=== PATIENT | male | born 1980 | race Caucasian/White ===

== ENCOUNTER 2019-08-11 16:58 | Emergency (ER) | payer MEDICARE, MEDICAID, SELFPAY ==
[2019-08-11 18:03] VITALS: BP 133/86; PULSE 90; RESP 16; TEMP 37; O2SAT 100
--- NOTE | 2019-08-11 18:35 | ED.ANXIETY ---
HPI - Anxiety General Chief Complaint: Anxiety <Mikael Chun PA-C - Last Filed: 08/11/19 18:44> Stated Complaint: Anxiety <Mikael Chun PA-C - Last Filed: 08/11/19 18:44> Time Seen by Provider: 08/11/19 18:10 <KRISTAL Young Last Filed: 08/11/19 18:44> Source: patient <Mikael Chun PA-C - Last Filed: 08/11/19 18:44> Mode of arrival: ambulatory <Mikael Chun PA-C - Last Filed: 08/11/19 18:44> Limitations: no limitations <Mikael Chun PA-C - Last Filed: 08/11/19 18:44> History of Present Illness HPI narrative: Patient is a 38-year-old male who presents per EMS to emergency department with increasing anxiety after he reportedly received the of over the phone today patient with extreme anxiety patient denies knowing anyone that would want to hurt him and denies any homicidal or suicidal ideation patient on arrival notes that he cannot find his Ativan he takes 3 mg 3 times a day and is followed by psychiatry patient was recent in the emergency department and also could not find his Ativan at that time. Patient on arrival is in the room in no distress <Mikael Chun PA-C - Last Filed: 08/11/19 18:44> Related Data Allergies/Adverse Reactions: Allergies Allergy/AdvReac Type Severity Reaction Status Date / Time acetaminophen Allergy Intermediate vomiting Verified 12/06/18 08:03 aspirin Allergy Unknown SWELLING Verified 12/06/18 08:03 <Mikael Chun PA-C - Last Filed: 08/11/19 18:44> Review of Systems Review of Systems: All systems reviewed & are unremarkable except as noted in HPI and below <Mikael Chun PA-C - Last Filed: 08/11/19 18:44> PMFSH Social History Social History: Social History Smoking status: Never smoker Second hand tobacco smoke exposure: No Alcohol intake: never <KRISTAL Young Last Filed: 08/11/19 18:44> Exam Narrative: Exam Narrative: GENERAL: Well-appearing, well-nourished, and in no acute distress. HEAD: Normocephalic, atraumatic. EYES: PERRLA and EOMI. ENT: Nares clear, no rhinorrhea or epistaxis. Mucous membranes moist. Oropharynx without tonsillar hypertrophy exudate or other lesions. CHEST: Clear to auscultation. No respiratory distress. No wheezes rales or rhonchi HEART: Regular rate and rhythm. No murmur heard. Normal peripheral pulses. EXTREMITIES: Normal range of motion. No edema. SKIN: Warm, dry, no rash. NEURO: No focal deficits. Alert and oriented x3. Cranial nerves II through XII grossly intact. PSYCH: Normal mood and affect. <Mikael Chun PA-C - Last Filed: 08/11/19 18:44> Course Course Emergency Course: Patient in the room in no distress advised to follow with his psychotherapist and felt appropriate for outpatient reevaluation <Mikael Chun PA-C - Last Filed: 08/11/19 18:44> Vital Signs Vital signs: Vital Signs Temperature 37.0 C 08/11/19 18:03 Pulse Rate 90 08/11/19 18:03 Respiratory Rate 16 08/11/19 18:03 Blood Pressure 133/86 08/11/19 18:03 Pulse Oximetry 100 08/11/19 18:03 Temperature 37.0 C 08/11/19 18:03 Pulse Rate 90 08/11/19 18:03 Respiratory Rate 16 08/11/19 18:03 Blood Pressure 133/86 08/11/19 18:03 Pulse Oximetry 100 08/11/19 18:03 <KRISTAL Young Last Filed: 08/11/19 18:44> Vital Signs Temperature 37.0 C 08/11/19 18:03 Pulse Rate 90 08/11/19 18:03 Respiratory Rate 16 08/11/19 18:03 Blood Pressure 133/86 08/11/19 18:03 Pulse Oximetry 100 08/11/19 18:03 Temperature 37.0 C 08/11/19 18:03 Pulse Rate 90 08/11/19 18:03 Respiratory Rate 16 08/11/19 18:03 Blood Pressure 133/86 08/11/19 18:03 Pulse Oximetry 100 08/11/19 18:03 <Howard Ortiz MD - Last Filed: 08/11/19 23:04> MDM - Anxiety MDM Narrative Medical decision making narrative: Patient with anxiety and no di
[2019-08-11] MEDS: LORAZEPAM 1 MG TABLET PO (18:37)
== END 2019-08-11 19:08 | disposition home or self-care (01) ==
PROVIDERS: Emergency Provider Emergency Medicine
DX: F41.9 Anxiety disorder, unspecified (principal)
CPT/HCPCS: 99283; A9270

== ENCOUNTER 2019-09-14 15:34 | Emergency (ER) | payer MEDICARE, MEDICAID, SELFPAY ==
[2019-09-14 15:36] VITALS: BP 142/89; PULSE 107; RESP 16; TEMP 36.3; O2SAT 96
[2019-09-14 15:51] VITALS: BP 139/78; PULSE 99; RESP 22; TEMP 37.1; O2SAT 100
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
[2019-09-14] MEDS: KETOROLAC (*BKC) 60 MG/2 ML VIAL IM (16:41)
--- NOTE | 2019-09-14 16:55 | PC.NURSE ---
PT [employer] LIGHT C/O CHEST PAIN AND SEEING SPOTS, ERP AT BEDSIDE INFORMED PT THAT HE WILL NOT BE PRESCRIBING NARCOTICS AND THAT PT NEEDS TO F/U WITH HIS PAIN MANAGEMENT DOC. NO NEW ORDERS.
[2019-09-14 16:56] VITALS: BP 132/78; PULSE 78; RESP 18; O2SAT 100
== END 2019-09-14 16:56 | disposition home or self-care (01) ==
PROVIDERS: Emergency Provider Emergency Medicine
DX: G89.29 Other chronic pain (principal)
CPT/HCPCS: 96372; 99283; J1885

== ENCOUNTER 2020-02-28 11:45 | Emergency (ER) | payer MEDICARE, MEDICAID, SELFPAY ==
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
[2020-02-28 11:57] VITALS: BP 120/73; PULSE 86; RESP 16; TEMP 37.2; O2SAT 99
== END 2020-02-28 12:12 | disposition home or self-care (01) ==
PROVIDERS: Emergency Provider Nurse Practitioner Family
DX: S51.811D Laceration without foreign body of right forearm, subsequent encounter (principal); W19.XXXD Unspecified fall, subsequent encounter; F41.9 Anxiety disorder, unspecified; F32.9 Major depressive disorder, single episode, unspecified; K21.9 Gastro-esophageal reflux disease without esophagitis
CPT/HCPCS: 99211; G0463

== ENCOUNTER 2020-03-03 09:25 | Emergency (ER) | payer MEDICARE, MEDICAID, SELFPAY ==
[2020-03-03 09:40] VITALS: BP 135/76; PULSE 99; RESP 18; TEMP 36.8; O2SAT 100
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
== END 2020-03-03 09:57 | disposition home or self-care (01) ==
LOC: EXPCOLL 09:36
PROVIDERS: Emergency Provider Registered Nurse
DX: Z48.00 Encounter for change or removal of nonsurgical wound dressing (principal); F41.9 Anxiety disorder, unspecified; F32.9 Major depressive disorder, single episode, unspecified; K21.9 Gastro-esophageal reflux disease without esophagitis
CPT/HCPCS: 99212; G0463

== ENCOUNTER 2020-03-17 10:21 | Emergency (ER) | payer MEDICARE, MEDICAID, SELFPAY ==
[2020-03-17 10:34] VITALS: BP 120/69; PULSE 99; RESP 18; TEMP 36.8; O2SAT 99
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
== END 2020-03-17 10:59 | disposition home or self-care (01) ==
PROVIDERS: Emergency Provider Nurse Practitioner
DX: Z48.00 Encounter for change or removal of nonsurgical wound dressing (principal); F41.9 Anxiety disorder, unspecified; F32.9 Major depressive disorder, single episode, unspecified; F20.9 Schizophrenia, unspecified; K21.9 Gastro-esophageal reflux disease without esophagitis
CPT/HCPCS: 99211; G0463

== ENCOUNTER 2020-05-09 10:40 | Emergency (ER) | payer MEDICARE, MEDICAID, SELFPAY ==
[2020-05-09 10:53] VITALS: BP 129/82; PULSE 101; RESP 16; TEMP 36.5; O2SAT 99
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
== END 2020-05-09 11:18 | disposition home or self-care (01) ==
PROVIDERS: Emergency Provider Nurse Practitioner
DX: L02.414 Cutaneous abscess of left upper limb (principal); S91.101A Unspecified open wound of right great toe without damage to nail, initial encounter; S91.104A Unspecified open wound of right lesser toe(s) without damage to nail, initial encounter; X58.XXXA Exposure to other specified factors, initial encounter; K21.9 Gastro-esophageal reflux disease without esophagitis; F41.9 Anxiety disorder, unspecified; F32.9 Major depressive disorder, single episode, unspecified
CPT/HCPCS: 99213; G0463

== ENCOUNTER 2020-06-04 10:18 | Emergency (ER) | payer MEDICARE, MEDICAID, SELFPAY ==
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
[2020-06-04 10:28] VITALS: BP 133/83; PULSE 98; RESP 18; TEMP 36.7; O2SAT 100
== END 2020-06-04 10:41 | disposition home or self-care (01) ==
PROVIDERS: Emergency Provider Nurse Practitioner Family
DX: K13.0 Diseases of lips (principal); K21.9 Gastro-esophageal reflux disease without esophagitis; F41.9 Anxiety disorder, unspecified; F32.9 Major depressive disorder, single episode, unspecified
CPT/HCPCS: 99213; G0463

== ENCOUNTER 2020-06-20 12:42 | Emergency (ER) | payer MEDICARE, MEDICAID, SELFPAY ==
[2020-06-20 12:52] VITALS: BP 122/66; PULSE 93; RESP 16; TEMP 37.1; O2SAT 100
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
== END 2020-06-20 13:10 | disposition home or self-care (01) ==
PROVIDERS: Emergency Provider Nurse Practitioner
DX: L03.031 Cellulitis of right toe (principal); S91.101A Unspecified open wound of right great toe without damage to nail, initial encounter; X58.XXXA Exposure to other specified factors, initial encounter; F41.9 Anxiety disorder, unspecified; F32.9 Major depressive disorder, single episode, unspecified; K21.9 Gastro-esophageal reflux disease without esophagitis
CPT/HCPCS: 99213; G0463

== ENCOUNTER 2020-09-24 10:56 | Emergency (ER) | payer MEDICARE, MEDICAID, SELFPAY ==
[2020-09-24 11:15] VITALS: BP 136/86; PULSE 92; RESP 18; TEMP 36.6; O2SAT 100
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
--- NOTE | 2020-09-24 11:40 | PC.NURSE ---
Rt calf 39cm/ Lt 34cm
== END 2020-09-24 11:26 | disposition short-term general hospital (02) ==
PROVIDERS: Emergency Provider Nurse Practitioner
DX: L03.115 Cellulitis of right lower limb (principal); K21.9 Gastro-esophageal reflux disease without esophagitis; F41.9 Anxiety disorder, unspecified; F32.9 Major depressive disorder, single episode, unspecified
CPT/HCPCS: 99212; G0463

== ENCOUNTER 2020-10-09 02:14 | Emergency (ER) | payer MEDICARE, MEDICAID, SELFPAY ==
--- NOTE | ~2020-10-09 | XR_ITS ---
EXAMINATION: XR elbow LT min 3V DATE: 10/09/2020 04:12 INDICATION: Left elbow pain. Fall. TECHNIQUE: 4 views of left elbow were obtained. COMPARISON: None. FINDINGS: Bone alignment is normal. No fracture. Joint spaces are well maintained. No elbow joint eff usion. There is soft tissue swelling overlying olecranon. IMPRESSION: 1. No fracture. Reviewed, dictated and finalized at location A. IMPRESSION: 1. No fracture.
--- NOTE | ~2020-10-09 | CT_ITS ---
EXAMINATION: CT cervical spine wo con DATE: 10/09/2020 04:20 INDICATION: Neck pain. Fall. TECHNIQUE: Computed tomography (CT) of the cervical spine was performed without intravenous contrast. Automated exposure control and iterative reconstruction technique were employed. The dose-length pro duct was 516.86 mGy-cm. COMPARISON: None FINDINGS: There is mild emphysema. There is kyphosis and 8 degrees levocurvature of cervical spine. V ertebral body heights are normal. There is mildly decreased disc height at C6-C7. The following disc levels are specifically discussed: C2-C3: There is no uncovertebral joint osteoarthritis. There is no facet joint osteoarthritis. There is no neural foraminal stenosis. There is no central canal stenosis. C3-C4: There is no uncovertebral joint osteoarthritis. There is mild bilateral facet joint osteoarthr itis. There is no neural foraminal stenosis. There is no central canal stenosis. C4-C5: There is no uncovertebral joint osteoarthritis. There is no facet joint osteoarthritis. There is no neural foraminal stenosis. There is no central canal stenosis. C5-C6: There is no uncovertebral joint osteoarthritis. There is no facet joint osteoarthritis. There is no neural foraminal stenosis. There is mild central canal stenosis. C6-C7: There is mild bilateral uncovertebral joint osteoarthritis. There is mild bilateral facet join t osteoarthritis. There is mild bilateral neural foraminal stenosis. There is mild central canal sten osis. C7-T1: There is no uncovertebral joint osteoarthritis. There is no facet joint osteoarthritis. There is no neural foraminal stenosis. There is no central canal stenosis. IMPRESSION: 1. No fracture. 2. Mild cervical spondylosis. Reviewed, dictated and finalized at location A.
--- NOTE | ~2020-10-09 | CT_ITS ---
EXAMINATION: CT brain wo con DATE: 10/09/2020 04:20 INDICATION: Head injury. TECHNIQUE: Computed tomography (CT) of the head was performed without intravenous contrast. The mA wa s adjusted according to patient size. Iterative reconstruction technique was employed. The dose-lengt h product was 605.33 mGy-cm. COMPARISON: Head CT 11/20/2017 FINDINGS: There is no intracranial hemorrhage, acute infarction, or abnormal intracranial mass lesion . The ventricles are normal in size. There is mild mucosal thickening in the ethmoid sinuses. The mas toid air cells are normal. The orbits are normal. IMPRESSION: 1. Normal brain. Reviewed, dictated and finalized at location A. IMPRESSION: 1. Normal brain.
--- NOTE | ~2020-10-09 | XR_ITS ---
EXAMINATION: XR elbow RT min 3V DATE: 10/09/2020 04:12 INDICATION: Right elbow pain. Fall. TECHNIQUE: 4 views of right elbow were obtained. COMPARISON: None. FINDINGS: Bone alignment is normal. No fracture. Joint spaces are normal. No elbow joint effusion. Th ere is soft tissue swelling overlying olecranon. IMPRESSION: 1. No fracture. Reviewed, dictated and finalized at location A. IMPRESSION: 1. No fracture.
[2020-10-09 02:26] VITALS: BP 141/86; PULSE 80; RESP 16; TEMP 36.3; O2SAT 100
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
[2020-10-09 05:27] VITALS: BP 139/80; PULSE 80; RESP 16; TEMP 36.4; O2SAT 100
== END 2020-10-09 05:28 | disposition home or self-care (01) ==
PROVIDERS: Emergency Provider Emergency Medicine
DX: S09.90XA Unspecified injury of head, initial encounter (principal); S16.1XXA Strain of muscle, fascia and tendon at neck level, initial encounter; M25.522 Pain in left elbow; M25.521 Pain in right elbow; F41.9 Anxiety disorder, unspecified; F32.9 Major depressive disorder, single episode, unspecified; K21.9 Gastro-esophageal reflux disease without esophagitis; W07.XXXA Fall from chair, initial encounter
CPT/HCPCS: 70450; 72125; 72128; 72131; 73080; 99284; A9270

== ENCOUNTER 2020-10-09 22:08 | Emergency (ER) | payer MEDICARE, MEDICAID, SELFPAY ==
--- NOTE | ~2020-10-09 | CT_ITS ---
EXAMINATION: CT thoracic lumbar wo con DATE: 10/09/2020 23:49 INDICATION: Back pain. Fall. TECHNIQUE: Computed tomography (CT) of the thoracic and lumbar spine was performed without intravenou s contrast. Automated exposure control and iterative reconstruction technique were employed. The dose -length product was 2196.69 mGy-cm. COMPARISON: None FINDINGS: CT THORACIC SPINE: There is mild emphysema. There is mild scarring at the lung apices. There is 6 deg diana dextrocurvature of thoracic spine. There is mild chronic anterior wedging of T6, T7, T8, and T9 vertebral bodies. There is mildly decreased disc height from T6-T7 through T10-T11. There is multilev el mild facet joint osteoarthritis. No neural foraminal stenosis. At T10-T11, there is mild central c anal stenosis. CT LUMBAR SPINE: There is 11 degrees levoscoliosis of lumbar spine. Vertebral body heights are normal . There is mildly decreased disc height at L1-L2 and L3-L4. The following disc levels are specificall y discussed: L1-L2: The disc is bulging. There is mild bilateral facet joint osteoarthritis. There is mild left ne ural foraminal stenosis. There is mild central canal stenosis. L2-L3: The disc is bulging. There is mild bilateral facet joint osteoarthritis. There is mild left ne ural foraminal stenosis. There is no central canal stenosis. L3-L4: The disc is bulging. There is mild right facet joint osteoarthritis. There is moderate right a nd mild left neural foraminal stenosis. There is mild central canal stenosis. L4-L5: The disc is bulging. There is mild right facet joint osteoarthritis. There is moderate bilater al neural foraminal stenosis. There is mild central canal stenosis. L5-S1: The disc is bulging. There is mild bilateral facet joint osteoarthritis. There is mild bilater al neural foraminal stenosis. There is mild central canal stenosis. IMPRESSION: 1. Mild thoracic spondylosis and moderate lumbar spondylosis. 2. Scoliosis. Reviewed, dictated and finalized at location A.
[2020-10-09 22:12] VITALS: BP 159/89; PULSE 96; RESP 18; TEMP 36.6; O2SAT 100
[2020-10-09] MEDS: HYDROmorphone HCL (*CRX) 2 MG TABLET PO (23:21)
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
[2020-10-10 01:24] VITALS: BP 150/80; PULSE 96; RESP 16; TEMP 36.4; O2SAT 96
== END 2020-10-10 01:26 | disposition home or self-care (01) ==
PROVIDERS: Emergency Provider Emergency Medicine
DX: S29.9XXA Unspecified injury of thorax, initial encounter (principal); S39.92XA Unspecified injury of lower back, initial encounter; F41.9 Anxiety disorder, unspecified; F32.9 Major depressive disorder, single episode, unspecified; K21.9 Gastro-esophageal reflux disease without esophagitis; M47.814 Spondylosis without myelopathy or radiculopathy, thoracic region; M47.816 Spondylosis without myelopathy or radiculopathy, lumbar region; M41.9 Scoliosis, unspecified; W07.XXXA Fall from chair, initial encounter
CPT/HCPCS: 72128; 72131; 99284; A9270

== ENCOUNTER 2020-11-16 17:53 | Emergency (ER) | payer MEDICARE, MEDICAID, SELFPAY ==
[2020-11-16 18:02] VITALS: BP 119/68; PULSE 74; RESP 14; TEMP 36.4; O2SAT 100
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
--- NOTE | 2020-11-16 20:30 | PC.NURSE ---
AC Lewis attempted to discharge this patient. She reports that he did not want medication or to be discharged until he was able to speak with the EDP. She tells me that the EDP is aware and will come speak with this patient.
--- NOTE | 2020-11-16 20:56 | PC.NURSE ---
attempted to medicate and discharge patient. patient refused medications and discharge until he speaks to md. erp made aware
[2020-11-16] MEDS: CYCLOBENZAPRINE HCL 10 MG TABLET PO (21:15)
[2020-11-16 21:17] VITALS: BP 124/64; PULSE 76; RESP 18; TEMP 36.6; O2SAT 100
== END 2020-11-16 21:17 | disposition home or self-care (01) ==
PROVIDERS: Emergency Provider Emergency Medicine; PCP Family Medicine
DX: M54.9 Dorsalgia, unspecified (principal); K21.9 Gastro-esophageal reflux disease without esophagitis; F41.9 Anxiety disorder, unspecified; F32.9 Major depressive disorder, single episode, unspecified
CPT/HCPCS: 99283; A9270

== ENCOUNTER 2020-11-22 13:42 | Outpatient (CLI) | payer OTHER, MEDICARE, MEDICAID, SELFPAY ==
--- NOTE | 2020-11-22 | ECG_ITS ---
Measurements Intervals [place] Rate: 76 P: 71 UT: 176 QRS: 57 QRSD: 105 T: 44 QT: 411 QTc: 464 Interpretive Statements SINUS RHYTHM POSSIBLE LEFT ATRIAL ENLARGEMENT BORDERLINE ECG Electronically Signed On 11-22-2020 21:06:09 CDT by Loki Hernandez D.O.
--- NOTE | ~2020-11-22 | XR_ITS ---
EXAMINATION: XR chest 2V 11/22/2020 14:10 INDICATION: Chronic back pain PROCEDURE: 2 view chest COMPARISON: 02/08/2017 FINDINGS: The lungs are clear. The cardiomediastinal silhouette is within normal limits. There are no pleural effusions. There is no pneumothorax suspected. IMPRESSION: 1: NO ACUTE CARDIOPULMONARY DISEASE. Reviewed, dictated and finalized at location B.
[2020-11-22 14:27] LABS: Basophils Absolute Auto 0.1 K/mm3 (0.0-0.1); Basophils Percent Auto 0.6 % (0.2-1.2); Eosinophils Percent Auto 0.2 % (0-4.4); Hematocrit 34.2 % (42.0-52.0); Hemoglobin 11.6 g/dL (14.0-18.0); Immature Granulocyte Absolute 0.06 K/mm3 (0.00-0.031); Immature Granulocyte Percent A 0.7 % (0-0.5); Lymphocytes Absolute Auto 1.12 K/mm3 (0.9-3.2); Mean Corpuscular HGB Conc 33.9 g/dl (32-36); Mean Corpuscular Hemoglobin 28.4 pg (26-34); Mean Corpuscular Volume 83.6 fl (80-100); Mean Platelet Volume 9.1 fl (7.4-10.4); Monocytes Absolute Auto 0.3 K/mm3 (0.1-0.6); Monocytes Percent Auto 3.2 % (2.6-8.5); Neutrophils Absolute Auto 7.1 K/mm3 (1.3-6.7); Neutrophils Percent Auto 82.3 % (45.5-73.1); Platelet Count Result 320 k/mm3 (150-375); Red Blood Count 4.09 M/mm3 (4.6-6.20); Red Cell Distribution Width 13.4 % (11.5-14.5); White Blood Count 8.6 K/mm3 (4.5-10.0)
[2020-11-22 14:36] LABS: Partial Thromboplastin Time 29.3 SECONDS (22.3-36.8)
[2020-11-22 14:41] LABS: Anion Gap 15 mmol/L (8-16); Blood Urea Nitrogen 16 mg/dL (9-20); Carbon Dioxide 21 mmol/L (22-30); Chloride 100 mmol/L (98-107); Estimated Glomerular Filt Rate > 60; Glucose 86 mg/dL (75-110); Potassium 4.1 mmol/L (3.4-5.0); Sodium 136 mmol/L (137-145)
== END 2020-11-22 13:43 | disposition home or self-care (01) ==
PROVIDERS: PCP Family Medicine; Visit Provider Neurological Surgery
DX: G89.4 Chronic pain syndrome (principal); R94.31 Abnormal electrocardiogram [ECG] [EKG]; M54.9 Dorsalgia, unspecified
CPT/HCPCS: 36415; 71046; 80048; 85025; 85730; 93005

== ENCOUNTER 2020-11-30 18:57 | Emergency (ER) | payer MEDICARE, MEDICAID, SELFPAY ==
[2020-11-30] VITALS (9 sets, daily range): BP systolic 80–124; BP diastolic 51–84; PULSE 57–72; RESP 16–22; TEMP 35.9; O2SAT 99–100
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
[2020-11-30] MEDS: LACTATED RINGERS 1,000 ML 999 ML IV CONT ×2 (20:02→20:03)
[2020-11-30 20:22] LABS: Basophils Percent Auto 0.3 % (0.2-1.2); Eosinophils Absolute Auto 0.1 K/mm3 (0-0.3); Hematocrit 37.3 % (42.0-52.0); Hemoglobin 12.1 g/dL (14.0-18.0); Immature Granulocyte Absolute 0.04 K/mm3 (0.00-0.031); Immature Granulocyte Percent A 0.4 % (0-0.5); Lymphocytes Absolute Auto 1.88 K/mm3 (0.9-3.2); Lymphocytes Percent Auto 19.3 % (18.3-44.2); Mean Corpuscular HGB Conc 32.4 g/dl (32-36); Mean Corpuscular Hemoglobin 28.3 pg (26-34); Mean Corpuscular Volume 87.4 fl (80-100); Mean Platelet Volume 9.3 fl (7.4-10.4); Monocytes Absolute Auto 0.5 K/mm3 (0.1-0.6); Monocytes Percent Auto 4.9 % (2.6-8.5); Neutrophils Absolute Auto 7.2 K/mm3 (1.3-6.7); Neutrophils Percent Auto 74.1 % (45.5-73.1); Platelet Count Result 303 k/mm3 (150-375); Red Blood Count 4.27 M/mm3 (4.6-6.20); Red Cell Distribution Width 13.7 % (11.5-14.5); White Blood Count 9.7 K/mm3 (4.5-10.0)
[2020-11-30 20:32] LABS: Creatine Kinase 52 U/L (55-170); Lipase 64 U/L (23-300); Magnesium 1.8 mg/dL (1.6-2.3)
[2020-11-30 20:33] LABS: Alanine Aminotransferase 17 U/L (4-50); Albumin Level 4.5 g/dL (3.5-5.1); Alkaline Phosphatase 69 U/L (38-126); Anion Gap 12 mmol/L (8-16); Aspartate Amino Transferase 22 U/L (17-59); Bilirubin,Total 0.3 mg/dL (0.2-1.3); Blood Urea Nitrogen 8 mg/dL (9-20); Calcium 9.8 mg/dL (8.4-10.2); Carbon Dioxide 24 mmol/L (22-30); Chloride 102 mmol/L (98-107); Estimated CRCL calculation 62 ml/min; Estimated Glomerular Filt Rate 45; Glucose 107 mg/dL (75-110); Lactic Acid Reflex 1.1 mmol/L (0.7-2.1); Potassium 4.1 mmol/L (3.4-5.0); Sodium 138 mmol/L (137-145)
[2020-11-30 20:45] LABS: Troponin I < 0.012 ng/mL (0.000-0.034)
[2020-11-30 21:19] LABS: Free T4 Free Thyroxine 0.79 ng/mL (0.78-2.19)
[2020-11-30 21:33] LABS: Thyroid Stimulating Hormone Reflex 0.871 uIU/mL (0.465-4.68)
[2020-11-30 22:17] LABS: Add Urine Microscopic? YES; Amorphous Sediment Urine Few; Appearance Urine Cloudy (Clear); Bacteria Urine Trace /hpf; Bilirubin Urine Negative (Negative); Blood Urine Negative (Negative); Color Urine Yellow (Yellow); Glucose Urine UA Negative (Negative); Ketones Urine Negative (Negative); Leukocyte Esterase Ur Negative LEU/UL (Negative); Mucus Urine Rare /lpf; Nitrate Urine Negative (Negative); Protein Urine Negative (Negative); RBC Urine 0-2 /hpf (0-2); Squamous Epithelial Cell Urine Rare /hpf (Few); Urobilinogen Urine Negative mg/dL (<2.0); WBC Urine 0-3 /hpf
== END 2020-11-30 23:20 | disposition home or self-care (01) ==
PROVIDERS: Emergency Provider Emergency Medicine; PCP Family Medicine
DX: E86.0 Dehydration (principal); I95.1 Orthostatic hypotension; K21.9 Gastro-esophageal reflux disease without esophagitis; F41.9 Anxiety disorder, unspecified; F32.9 Major depressive disorder, single episode, unspecified; T14.8XXS Other injury of unspecified body region, sequela; W86.8XXS Exposure to other electric current, sequela
CPT/HCPCS: 36415; 80053; 81001; 82550; 83605; 83690; 83735; 84439; 84443; 84484; 85025; 96360; 96361; 99284; J7120

== ENCOUNTER 2020-12-11 00:15 | Emergency (ER) | payer MEDICARE, MEDICAID, SELFPAY ==
[2020-12-11 00:17] VITALS: BP 120/77; PULSE 86; RESP 18; TEMP 36.8; O2SAT 100
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
--- NOTE | 2020-12-11 01:53 | PC.NURSE ---
Pt remains resting on cart in its lowest position with no complaints or concerns voiced. EDMD presented to bedside to update pt on poc and all questions and concerns addressed.
[2020-12-11 02:08] VITALS: BP 115/80; PULSE 79; RESP 18; TEMP 36.6; O2SAT 98
== END 2020-12-11 02:12 | disposition home or self-care (01) ==
PROVIDERS: Emergency Provider Emergency Medicine; PCP Family Medicine
DX: M54.5 Low back pain (principal); M54.2 Cervicalgia; G89.29 Other chronic pain; F41.9 Anxiety disorder, unspecified; F32.9 Major depressive disorder, single episode, unspecified; K21.9 Gastro-esophageal reflux disease without esophagitis
CPT/HCPCS: 99281

== ENCOUNTER 2020-12-14 23:09 | Emergency (ER) | payer MEDICARE, MEDICAID, SELFPAY ==
[2020-12-14 23:18] VITALS: BP 129/74; PULSE 102; RESP 17; TEMP 36.4; O2SAT 99
[2020-12-15 00:38] VITALS: BP 147/101; PULSE 84; RESP 18; O2SAT 100
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
[2020-12-15] MEDS: CYCLOBENZAPRINE HCL 10 MG TABLET PO (01:29)
[2020-12-15 01:56] VITALS: BP 133/85; PULSE 73; RESP 18; O2SAT 100
== END 2020-12-15 01:56 | disposition home or self-care (01) ==
PROVIDERS: Emergency Provider Emergency Medicine; PCP Family Medicine
DX: G89.4 Chronic pain syndrome (principal); T75.4XXS Electrocution, sequela; F41.9 Anxiety disorder, unspecified; F32.9 Major depressive disorder, single episode, unspecified; K21.9 Gastro-esophageal reflux disease without esophagitis
CPT/HCPCS: 96372; 99283; A9270; J1100

== ENCOUNTER 2020-12-15 15:39 | Emergency (ER) | payer MEDICARE, MEDICAID, SELFPAY ==
[2020-12-15 15:43] VITALS: BP 145/90; PULSE 103; RESP 18; TEMP 36.9; O2SAT 100
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
[2020-12-15 16:39] VITALS: BP 143/88; PULSE 97; RESP 12; O2SAT 98
== END 2020-12-15 16:39 | disposition home or self-care (01) ==
PROVIDERS: Emergency Provider Emergency Medicine; PCP Family Medicine
DX: G89.4 Chronic pain syndrome (principal); M54.5 Low back pain; F41.9 Anxiety disorder, unspecified; F32.9 Major depressive disorder, single episode, unspecified; K21.9 Gastro-esophageal reflux disease without esophagitis
CPT/HCPCS: 99283

== ENCOUNTER 2021-01-08 19:42 | Emergency (ER) | payer MEDICARE, MEDICAID, SELFPAY ==
[2021-01-08 19:49] VITALS: BP 123/80; PULSE 94; RESP 18; TEMP 36.9; O2SAT 100
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
== END 2021-01-08 20:23 | disposition home or self-care (01) ==
PROVIDERS: Emergency Provider Nurse Practitioner; PCP Family Medicine
DX: L73.9 Follicular disorder, unspecified (principal); D17.21 Benign lipomatous neoplasm of skin and subcutaneous tissue of right arm; K21.9 Gastro-esophageal reflux disease without esophagitis; F41.9 Anxiety disorder, unspecified; F32.9 Major depressive disorder, single episode, unspecified
CPT/HCPCS: 99213; G0463

== ENCOUNTER 2021-01-16 14:33 | Emergency (ER) | payer MEDICARE, MEDICAID, SELFPAY ==
[2021-01-16 14:52] VITALS: BP 134/77; PULSE 83; RESP 16; TEMP 36.9; O2SAT 99
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
[2021-01-16 17:24] VITALS: BP 130/69; PULSE 70; RESP 16; O2SAT 99
== END 2021-01-16 17:25 | disposition home or self-care (01) ==
PROVIDERS: Emergency Provider Emergency Medicine; PCP Family Medicine
DX: M70.21 Olecranon bursitis, right elbow (principal); F32.9 Major depressive disorder, single episode, unspecified; F41.9 Anxiety disorder, unspecified; K21.9 Gastro-esophageal reflux disease without esophagitis
CPT/HCPCS: 99282

== ENCOUNTER 2021-08-10 18:07 | Inpatient (IN) | payer MEDICARE, MEDICAID, SELFPAY ==
[2021-08-10] VITALS (7 sets, daily range): BP systolic 130–158; BP diastolic 76–98; PULSE 78–101; RESP 14–18; TEMP 36.9; O2SAT 98–100; BMI 25.0
--- NOTE | ~2021-08-10 | XR_ITS ---
EXAMINATION: XR chest 1V portable EXAM DATE: 08/10/2021 20:22 INDICATION: PT Here For Si,Hypotensive On Arrival TECHNIQUE: Portable AP frontal chest x-ray was obtained. Comparison is made to prior examination from 11/22/2020. FINDINGS: The lungs are clear. There are no pleural effusions. The cardiomediastinal silhouette is within normal limits. There is no pneumothorax suspected. The bones and soft tissues are unremarkab le. IMPRESSION: No acute cardiopulmonary findings. Reviewed, dictated and finalized at location G. OID UI DEVELOPER
--- NOTE | ~2021-08-10 | CT_ITS ---
EXAMINATION: CT abdomen pelvis wo con EXAM DATE: 08/10/2021 21:35 INDICATION: Acute renal failure . TECHNIQUE: Spiral CT of the abdomen and pelvis was performed without contrast. Axial, coronal and s agittal images of the abdomen and pelvis were reviewed. The dose-length product (DLP) for this exami nation was 803.82 mGy-cm. The exposure was tailored according to patient size (auto mA exposure cont rol), and iterative reconstruction (ASIR) was used as additional dose reduction technique. There is no prior study for comparison. FINDINGS: The liver, spleen, adrenal glands and pancreas are unremarkable. Gallbladder is unremarkab le. No biliary obstruction. There is no nephrolithiasis or hydronephrosis. The prostate is unrema rkable. The bladder is unremarkable. There is no retroperitoneal or pelvic lymphadenopathy. The appendix is normal. The stomach and small bowel are unremarkable. There is expected amount of c olonic stool. No free intraperitoneal gas. The heart is normal in size. There are no pericardial or pleural effusions. The lung bases are unremarkable. There are no osteoblastic or osteolytic les ions identified. IMPRESSION: 1. No acute intra-abdominal findings. Unremarkable kidneys. Reviewed, dictated and finalized at location G. DRIVER
--- NOTE | 2021-08-10 18:22 | ED.PSYCH ---
HPI - Psych General Chief Complaint: Psychiatric Symptoms <Sam Rivera MD - Last Filed: 08/10/21 20:35> Stated Complaint: Suicidal - lacerations to bilateral wrists <Sam Rivera MD - Last Filed: 08/10/21 20:35> Time Seen by Provider: 08/10/21 18:14 <Sam Rivera MD - Last Filed: 08/10/21 20:35> Source: patient <Sam Rivera MD - Last Filed: 08/10/21 20:35> Mode of arrival: ambulatory <Sam Rivera MD - Last Filed: 08/10/21 20:35> Limitations: no limitations <Sam Rivera MD - Last Filed: 08/10/21 20:35> History of Present Illness HPI Narrative: Patient is a 40-year-old male brought in by EMS after a suicide attempt by slashing both of his wrist. Patient states that he has been feeling depressed for the past 2 days since his family disowned him. Patient denies any homicidal ideation. Patient denies any auditory visual hallucinations. Patient states that he has a history of anxiety, depression and bipolar. <Sam Rivera MD - Last Filed: 08/10/21 20:35> Related Data Home Medications: Home Medications Medication Instructions Recorded Confirmed duloxetine 60 mg PO DAILY 09/24/20 01/08/21 fluoxetine 60 mg PO DAILY 09/24/20 01/08/21 quetiapine 400 mg PO DAILY 09/24/20 01/08/21 gabapentin 600 mg PO TID 11/16/20 01/08/21 icosapent ethyl [Vascepa] 3 g PO DAILY 11/16/20 01/08/21 alprazolam 0.5 mg PO TID PRN 01/08/21 01/08/21 lidocaine 1 applic TOPICAL DAILY 01/08/21 01/08/21 oxycodone 10 mg PO Q6-8H PRN 01/08/21 01/08/21 <Sam Rivera MD - Last Filed: 08/10/21 20:35> Allergies/Adverse Reactions: Allergies Allergy/AdvReac Type Severity Reaction Status Date / Time acetaminophen Allergy Intermediate vomiting Verified 08/01/21 14:58 NSAIDS (Non-Steroidal Allergy Mild Redness of Verified 01/16/21 14:58 Anti-Inflamma Skin aspirin Allergy Unknown SWELLING Verified 01/16/21 14:58 <Sam Rivera MD - Last Filed: 08/10/21 20:35> Review of Systems Review of Systems: All systems reviewed & are unremarkable except as noted in HPI and below <Sam Rivera MD - Last Filed: 08/10/21 20:35> Constitutional: Constitutional: Denies body ache(s), Denies chills, Denies excessive sweating, Denies fatigue, Denies fever(s), Denies headache(s), Denies lethargy, Denies malaise, Denies weakness and Denies weight loss <Sam Rivera MD - Last Filed: 08/10/21 20:35> Eyes: Eyes: Denies blurry vision, Denies change in vision and Denies loss of vision <Sam Rivera MD - Last Filed: 08/10/21 20:35> ENT: Denies dizziness, Denies ear discharge, Denies headache(s), Denies lip swelling, Denies epistaxis, Denies nasal congestion, Denies neck pain, Denies throat swelling and Denies tongue swelling <Sam Rivera MD - Last Filed: 08/10/21 20:35> Cardiovascular: Cardiovascular: Denies chest pain, Denies chest pain at rest, Denies chest pain with activity, Denies diaphoresis, Denies rapid heart rate, Denies edema, Denies irregular heart rhythm, Denies lightheadedness, Denies palpitations, Denies dyspnea and Denies dyspnea on exertion <Sam Rivera MD - Last Filed: 08/10/21 20:35> Respiratory: Respiratory: Denies chest congestion, Denies cough, Denies hemoptysis, Denies dyspnea and Denies dyspnea on exertion <Sam Rivera MD - Last Filed: 08/10/21 20:35> Gastrointestinal: Gastrointestinal: Denies abdominal pain, Denies melena, Denies hematochezia, Denies diarrhea, Denies nausea, Denies vomiting and Denies hematemesis <Sam Rivera MD - Last Filed: 08/10/21 20:35> Musculoskeletal: Musculoskeletal: Denies abnormal gait, Denies deformity, Denies joint swelling, Denies limited range of motion, Denies neck pain and Denies numbness <Sam Rivera MD - Last Filed: 08/10/21 20:35> Neurologic: Denies Abnormal speech present, Denies abnormal gait, Denies confusion, Denies dizziness, Denies headache(s), Denies focal
[2021-08-10] MEDS: SODIUM CHLORIDE 0.9% IV 1,000 ML 999 ML IV CONT ×2 (18:26→22:18)
[2021-08-10 18:29] LABS: Hemoglobin 12.9 g/dL (14.0-18.0); Mean Corpuscular HGB Conc 33.9 g/dl (32-36); Mean Corpuscular Hemoglobin 29.7 pg (26-34); Mean Corpuscular Volume 87.6 fl (80-100); Mean Platelet Volume 8.9 fl (7.4-10.4); Platelet Count Result 452 k/mm3 (150-375); Red Blood Count 4.34 M/mm3 (4.6-6.20); Red Cell Distribution Width 12.1 % (11.5-14.5); White Blood Count 24.2 K/mm3 (4.5-10.0)
[2021-08-10 18:40] LABS: Acetaminophen < 10 ug/mL (10-30); Ethanol < 10 mg/dL (<10); Salicylate < 1.0 mg/dL (2-20)
[2021-08-10 18:48] LABS: Albumin Level 5.2 g/dL (3.5-5.1); Alkaline Phosphatase 99 U/L (38-126); Anion Gap 26 mmol/L (8-16); Aspartate Amino Transferase 31 U/L (17-59); Bilirubin,Total 0.6 mg/dL (0.2-1.3); Blood Urea Nitrogen 9 mg/dL (9-20); Calcium 9.9 mg/dL (8.4-10.2); Carbon Dioxide 14 mmol/L (22-30); Chloride 91 mmol/L (98-107); Estimated CRCL calculation 42 ml/min; Estimated Glomerular Filt Rate 32; Glucose 321 mg/dL (65-110); Potassium 3.9 mmol/L (3.4-5.0); Sodium 131 mmol/L (137-145)
[2021-08-10 18:52] LABS: Lymphocytes Absolute Manual 2.66 K/mm3 (1.1-4.5); Monocytes Absolute Manual 0.48 K/mm3 (0.1-0.90); Monocytes Percent Manual 2 % (3-9); Neutrophils Percent Manual 87 % (46-73); Total Cells Counted 100
[2021-08-10 18:53] LABS: Platelet Estimate Increased (Adequate)
[2021-08-10 18:58] LABS: Alanine Aminotransferase 29 U/L (4-50)
[2021-08-10 19:21] LABS: SARS-CoV-2 RNA PCR Negative
--- NOTE | 2021-08-10 19:24 | PC.NURSE ---
Provider at bedside performing laceration repair.
--- NOTE | 2021-08-10 19:26 | PC.NURSE ---
Pt states he used a kitchen knife to lacerate his bilateral wrists at approximately 12 noon today. Pt states after a few hours he called 911 for help. Pt reports a hx of depression and anxiety but denies previous suicide attempts. Pt states i just couldn't think of another reason to live . Pt is cooperative and withdrawn during assessment. pt was prompted several times for replies. pt is alert and oriented, bleeding is controlled with kerlix and gauze at this time. Pt states he has no family support and is medication compliant.
[2021-08-10 20:21] LABS: Glucose Point of Care 162 mg/dl (65-105)
--- NOTE | 2021-08-10 20:26 | PC.NURSE ---
Pt states he has been feeling hopeless. States he felt impulsive today and attempted suicide as a sevilla decision . Pt is resting with eyes closed, VSS, sitter at bedside. Per BRIA Rivera pt will be admitted here medically.
[2021-08-10] MEDS: TETANUS,DIPHTHERIA,AC PERTUSSIS ADULT (0.5 ML) BOOSTRIX IM (20:46)
[2021-08-10 20:50] LABS: Add Urine Microscopic? YES; Appearance Urine Cloudy (Clear); Bacteria Urine Trace /hpf; Bilirubin Urine Negative (Negative); Blood Urine Negative (Negative); Color Urine Amber (Yellow); Glucose Urine UA Negative (Negative); Hyaline Casts Urine 30-49 /lpf; Ketones Urine Trace mg/dL (Negative); Leukocyte Esterase Ur Negative LEU/UL (Negative); Mucus Urine Heavy /lpf; Nitrate Urine Negative (Negative); Protein Urine 2+ mg/dL (Negative); RBC Urine 0-2 /hpf (0-2); Specific Grav Ur 1.023 (1.001-1.035); Squamous Epithelial Cell Urine Occasional /hpf (Few); Urobilinogen Urine Negative mg/dL (<2.0)
[2021-08-10] MEDS: LACTATED RINGERS 1,000 ML 150 ML IV CONT (20:56)
[2021-08-10 21:03] LABS: Amphetamine Screen Urine Negative (Negative); Barbiturate Screen Urine Negative (Negative); Benzodiazepines Screen Urine Negative (Negative); Cannabinoid Screen Urine Positive (Negative); Cocaine Screen Urine Negative (Negative); Methadone Screen Urine Negative (Negative); Opiate Screen Urine Positive (Negative); Phencyclidine Screen Urine Negative (Negative)
--- NOTE | 2021-08-10 21:19 | PC.NURSE ---
ESTRADABO PHENERGAN 12.5MG AND ZOFRAN 4MG IVPUSH PER ERP DR MCKEON
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
[2021-08-10] MEDS: ONDANSETRON INJ 4 MG/2 ML VIAL IV PUSH (21:25)
[2021-08-10] MEDS: PROMETHAZINE HCL 25 MG/ML AMPUL 12.5 MG IV PUSH (21:25)
[2021-08-10] MEDS: SODIUM CHLORIDE 0.9% IV 500 ML 50 ML (22:02)
[2021-08-10 22:10] LABS: Hemoglobin A1C 5.2 % (<5.7)
[2021-08-10] MEDS: INSULIN HUMAN REGULAR (*BKC) 100 UNITS in SODIUM CHLORIDE 0.9% IV 99 ML 5.22 UNITS IV CONT (22:17)
[2021-08-10] MEDS: DOXYCYCLINE 100 MG/NS 100 ML 100 MG/100 ML BAG IVPB (22:17)
[2021-08-10 22:35] LABS: Anion Gap 14 mmol/L (8-16); Blood Urea Nitrogen 11 mg/dL (9-20); Calcium 9.4 mg/dL (8.4-10.2); Carbon Dioxide 19 mmol/L (22-30); Chloride 97 mmol/L (98-107); Creatine Kinase 78 U/L (55-170); Estimated CRCL calculation 60 ml/min; Estimated Glomerular Filt Rate 49; Glucose 157 mg/dL (65-110); Phosphorus 3.4 mg/dL (2.5-4.5); Potassium 4.3 mmol/L (3.4-5.0); Sodium 130 mmol/L (137-145)
[2021-08-10 22:42] LABS: Lactic Acid Reflex 2.6 mmol/L (0.7-2.1)
[2021-08-10 22:48] LABS: Beta-Hydroxybutyrate/Acetoacetate 0.24 mmol/L (0.02-0.27)
[2021-08-10 23:14] LABS: Glucose Point of Care 164 mg/dl (65-105)
[2021-08-10] MEDS: KCL 20 MEQ/D5/0.45% SOD CHL 1,000 ML 150 ML IV CONT (23:19)
[2021-08-10 23:32] LABS: Magnesium 2.2 mg/dL (1.6-2.3)
--- NOTE | 2021-08-10 23:36 | ADMGEN ---
This patient, Howard Funes, was admitted to Intensive Care Unit-2 at 2315 on 08/10/2021. Patient/family oriented to hospital policies and general routines including ID bracelet, bed and alarms, visiting hours, pain management, procedures, bathroom and other care routines, personal items, smoking policy, room service/diet, and visiting hours. Information on how to activate the Rapid Response Team has been discussed. Patient/Family are encouraged to report perceived risks to care and to ask questions if they do not understand what they are told or what they should do.
[2021-08-10 23:50] LABS: Glucose Point of Care 112 mg/dl (65-105)
[2021-08-11] VITALS (10 sets, daily range): BP systolic 109–156; BP diastolic 65–87; PULSE 86–123; RESP 11–19; TEMP 36.5–36.9; O2SAT 93–100
[2021-08-11] MEDS: SODIUM CHLORIDE 0.9% IV 1,000 ML 100 ML IV CONT (00:19)
[2021-08-11] MEDS: oxyCODONE HCL (*CRX) 5 MG TAB IR 15 MG PO ×4 (00:31→18:47)
[2021-08-11 01:30] LABS: Reflex Lactic Acid Yes or No Add Lactic
[2021-08-11 01:47] LABS: Glucose Point of Care 112 mg/dl (65-105)
[2021-08-11 02:20] LABS: Anion Gap 13 mmol/L (8-16); Blood Urea Nitrogen 11 mg/dL (9-20); Calcium 8.6 mg/dL (8.4-10.2); Carbon Dioxide 18 mmol/L (22-30); Chloride 98 mmol/L (98-107); Estimated CRCL calculation 99 ml/min; Estimated Glomerular Filt Rate > 60; Glucose 115 mg/dL (65-110); Lactic Acid 2.7 mmol/L (0.7-2.1); Sodium 129 mmol/L (137-145)
[2021-08-11 05:34] LABS: Anion Gap 8 mmol/L (8-16); Blood Urea Nitrogen 11 mg/dL (9-20); Calcium 8.5 mg/dL (8.4-10.2); Carbon Dioxide 22 mmol/L (22-30); Chloride 99 mmol/L (98-107); Estimated CRCL calculation 117 ml/min; Estimated Glomerular Filt Rate > 60; Glucose 110 mg/dL (65-110); Potassium 3.9 mmol/L (3.4-5.0); Sodium 129 mmol/L (137-145)
[2021-08-11] MEDS: ALPRAZolam (*CRX) 0.5 MG TABLET 1 MG PO ×2 (09:05→16:30)
[2021-08-11] MEDS: DOXYCYCLINE 100 MG/NS 100 ML 100 MG/100 ML BAG IVPB ×2 (09:18→21:04)
[2021-08-11] MEDS: QUEtiapine FUMARATE XR 200 MG TAB.ER.24H 400 MG PO (09:18)
[2021-08-11 09:21] LABS: Glucose Point of Care 122 mg/dl (65-105)
--- NOTE | 2021-08-11 09:29 | WPDCDIQUERY2 ---
CDI Query Clarification Request -08/10 Documentation: Acute kidney failure, unspecified, Probably related to dehydration secondary to DKA give IV fluid also will get CT scan of the abdomen to evaluate for hydronephrosis Also check CK and Hyperglycemia, unspecified -Acute Hyperglycemia, Probable DKA check hemoglobin A1c Started DKA protocol Please clarify if DKA has been ruled in or ruled out, or unable to determine
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
[2021-08-11] MEDS: GABAPENTIN 300 MG CAPSULE 600 MG PO ×2 (11:07→14:00)
[2021-08-11] MEDS: DULoxetine HCL 60 MG CAPSULE.DR PO (11:08)
[2021-08-11] MEDS: TIZANIDINE HCL 4 MG TABLET PO ×2 (11:08→18:42)
--- NOTE | 2021-08-11 11:48 | PCDIET ---
Dietitian consult for DKA. Patient currently on a clear liquid diet, tolerating. HbA1c 5.2%, per MD notes unlikely DKA. No history of Diabetes. No further nutritional interventions at this time.
[2021-08-11 12:28] LABS: Glucose Point of Care 138 mg/dl (65-105)
[2021-08-11 17:59] LABS: Basophils Percent Auto 0.3 % (0.2-1.2); Eosinophils Percent Auto 0.2 % (0-4.4); Hematocrit 27.8 % (42.0-52.0); Hemoglobin 9.4 g/dL (14.0-18.0); Immature Granulocyte Absolute 0.09 K/mm3 (0.00-0.031); Immature Granulocyte Percent A 0.6 % (0-0.5); Lymphocytes Percent Auto 21.1 % (18.3-44.2); Mean Corpuscular HGB Conc 33.8 g/dl (32-36); Mean Corpuscular Hemoglobin 28.7 pg (26-34); Mean Platelet Volume 8.3 fl (7.4-10.4); Monocytes Absolute Auto 1.2 K/mm3 (0.1-0.6); Monocytes Percent Auto 8.2 % (2.6-8.5); Neutrophils Absolute Auto 10.2 K/mm3 (1.3-6.7); Neutrophils Percent Auto 69.6 % (45.5-73.1); Platelet Count Result 275 k/mm3 (150-375); Red Blood Count 3.27 M/mm3 (4.6-6.20); Red Cell Distribution Width 12.3 % (11.5-14.5); White Blood Count 14.7 K/mm3 (4.5-10.0)
[2021-08-11 18:28] LABS: Glucose Point of Care 130 mg/dl (65-105)
[2021-08-11 20:05] LABS: Alanine Aminotransferase 14 U/L (4-50); Albumin Level 3.7 g/dL (3.5-5.1); Alkaline Phosphatase 65 U/L (38-126); Anion Gap 7 mmol/L (8-16); Aspartate Amino Transferase 23 U/L (17-59); Bilirubin,Total 0.5 mg/dL (0.2-1.3); Blood Urea Nitrogen 7 mg/dL (9-20); Calcium 8.4 mg/dL (8.4-10.2); Carbon Dioxide 24 mmol/L (22-30); Chloride 99 mmol/L (98-107); Estimated CRCL calculation 144 ml/min; Estimated Glomerular Filt Rate > 60; Glucose 121 mg/dL (65-110); Potassium 3.3 mmol/L (3.4-5.0); Sodium 130 mmol/L (137-145)
[2021-08-11 20:35] LABS: Thyroid Stimulating Hormone 0.281 uIU/mL (0.465-4.680)
[2021-08-11] MEDS: cefTRIAXone 2 GM in SODIUM CHLORIDE 0.9% IV 100 ML 200 ML IVPB (21:05)
[2021-08-11] MEDS: QUEtiapine FUMARATE 100 MG TABLET 200 MG PO (22:12)
[2021-08-12] VITALS: BP 122/78; PULSE 94; RESP 16; TEMP 36.3; O2SAT 95
[2021-08-12] MEDS: oxyCODONE HCL (*CRX) 5 MG TAB IR 15 MG PO ×3 (00:01→12:16)
[2021-08-12] MEDS: GABAPENTIN 300 MG CAPSULE 600 MG PO ×2 (06:01→13:44)
[2021-08-12] MEDS: ALPRAZolam (*CRX) 0.5 MG TABLET 1 MG PO ×2 (06:38→12:20)
[2021-08-12 08:00] VITALS: BP 126/71; PULSE 85; PULSE 94; RESP 16; O2SAT 100; O2SAT 95
[2021-08-12] MEDS: DULoxetine HCL 60 MG CAPSULE.DR PO (08:02)
[2021-08-12] MEDS: TIZANIDINE HCL 4 MG TABLET PO (08:03)
[2021-08-12] MEDS: LIDOCAINE 5% PATCH 1 PATCH TRANSDERM (08:03)
[2021-08-12 08:17] LABS: Glucose Point of Care 107 mg/dl (65-105)
[2021-08-12] MEDS: POTASSIUM CHLORIDE 20 MEQ TABLET 40 MEQ PO (08:23)
[2021-08-12] MEDS: DOXYCYCLINE 100 MG/NS 100 ML 100 MG/100 ML BAG IVPB (08:24)
[2021-08-12 11:45] LABS: Glucose Point of Care 122 mg/dl (65-105)
--- NOTE | 2021-08-12 13:04 | PM.IMPN ---
Progress Note: A&P Assessment and Plan (1) Suicide attempt: Code(s): T14.91XA - Suicide attempt, initial encounter Status: Acute Assessment and Plan: Patient presented with suicide attempt by slashing bilateral wrists. -superficial lacerations on bilateral wrists which were sutured by ER physician. There was no artery or ligamental damage per ER physician -continue suicide precautions -bedside sitter -patient has been evaluated by manager rn case and crisis management team, patient has been accepted to [facility] in the inpatient psych Unit, awaiting bed (2) Depression: Code(s): F32.9 - Major depressive disorder, single episode, unspecified Status: Acute Assessment and Plan: Continue duloxetine, Xanax p.r.n. (3) Acute kidney injury: Code(s): N17.9 - Acute kidney failure, unspecified Status: Acute Assessment and Plan: Acute kidney injury with creatinine of 2.3 on admission could be related to hypovolemia, decreased oral intake, hyperglycemia -patient was given adequate IV fluids -creatinine back to 1.0 -continue to monitor urine output, renal function electrolytes (4) Acute hyperglycemia: Code(s): R73.9 - Hyperglycemia, unspecified Status: Acute Assessment and Plan: Could be stress related, blood sugars have normalized -beta hydroxybutyrate was normal, patient did not have an anion gap, hemoglobin A1c was 5.2 Additional Plan Updated patient with his condition and plan of care, I answered all his questions Code status: Full code Patient has been accepted at [facility] in their psych unit, awaiting bed allotment Subjective Date/time seen: 08/12/21 13:04 Interval history: Reason for consult: Suicide behavior, Slashing of wrists bilaterally with superficial injury, no ligamental arterial injury 08/12/2021: Patient seen examined this morning in the ICU for the hospitalist team. Patient is awake, alert, oriented, in no distress. Patient is tolerating diet, urine output has been adequate, hemodynamically stable, afebrile with no issues overnight, patient states that the Xanax is helping. He is upset on his mother and stated that his brother committed suicide with shooting himself in the head. He denies any suicidal or homicidal intent or behavior at this time Review of Systems Review of Systems: All systems reviewed & are unremarkable except as noted in HPI and below Exam Narrative: General: Patient is laying comfortably in bed, tearful, in no acute distress HEENT: Moist oral mucosa, sclera is clear and pupils equal and reactive bilaterally Neck: Supple, no lymphadenopathy Respiratory: Clear to auscultation bilaterally Cardiac: S1-S2 is normal regular rate and rhythm, Abdomen: Soft, nondistended, nontender, normoactive bowel sounds Extremities: No edema, palpable pedal pulses Neuro: Patient is awake, alert, oriented x3, nonfocal, he does have some shakiness which she attributes to nervousness/anxiety Skin: Dry and intact, bilateral wrists in Murali wrap Psych: Tearful, depressed affect, anxious Objective Data Vital Signs Vital Signs: Vital Signs - 24 hr 08/11/21 14:00 08/11/21 16:00 08/11/21 18:00 Temperature Pulse Rate 92 123 H 94 Respiratory Rate Blood Pressure Pulse Oximetry 08/12/21 00:00 08/12/21 08:00 Temperature 97.4 F L Pulse Rate 94 85 Respiratory Rate 16 16 Blood Pressure 122/78 126/71 Pulse Oximetry 95 100 Intake/Output Intake/Output: Intake & Output 08/09/21 08/10/21 08/11/21 08/12/21 23:59 23:59 23:59 23:59 Intake Total 1150 4390 1025 Output Total 1100 Balance 1150 3290 1025 Meds/Results Medications: Active Medications Generic Name Dose Route Start Last Admin Trade Name Freq PRN Reason Stop Dose Admin Alprazolam 1 mg 08/11/21 09:02 08/12/21 12:20 Alprazolam (*Crx) 0.5 Mg Tablet PO 1 mg Q6HR PRN Administration anxiety Dextrose 12.5 gm
--- NOTE | 2021-08-12 14:26 | PM.DS ---
DS: Admitting Diagnosis Discharge Date 08/12/2021 Admitting Diagnosis Suicidal ideation Suicidal attempt. (1) Suicide attempt: (2) Acute kidney injury: (3) Acute hyperglycemia: (4) Laceration of wrist, left: (5) Laceration of wrist, right: (6) Leukocytosis: (7) Depression: DS: Discharge Diagnosis Discharge Diagnosis (1) Suicide attempt: Code(s): T14.91XA - Suicide attempt, initial encounter Status: Acute Assessment and Plan: Patient presented with suicide attempt by slashing bilateral wrists. -superficial lacerations on bilateral wrists which were sutured by ER physician. There was no artery or ligamental damage per ER physician -continue suicide precautions -bedside sitter -patient has been evaluated by case investigator and crisis management team, patient has been accepted to [facility] in the inpatient psych Unit, awaiting bed (2) Depression: Code(s): F32.9 - Major depressive disorder, single episode, unspecified Status: Acute Assessment and Plan: Continue duloxetine, Xanax p.r.n. (3) Acute kidney injury: Code(s): N17.9 - Acute kidney failure, unspecified Status: Acute Assessment and Plan: Acute kidney injury with creatinine of 2.3 on admission could be related to hypovolemia, decreased oral intake, hyperglycemia -patient was given adequate IV fluids -creatinine back to 1.0 -continue to monitor urine output, renal function electrolytes (4) Acute hyperglycemia: Code(s): R73.9 - Hyperglycemia, unspecified Status: Acute Assessment and Plan: Could be stress related, blood sugars have normalized -beta hydroxybutyrate was normal, patient did not have an anion gap, hemoglobin A1c was 5.2 DS: Summary Hospital Course Reason for hospitalization: Suicidal ideation Suicide attempt Hospital Course: Please refer to admission H&P. Briefly, this is a 40 year-old male with past medical history of anxiety depression bipolar who presented to the hospital with suicidal attempt patient was complaining of depression for the past 2 days patient attempt suicide by slashing his rest according to the ER no evidence of deep arterial injury or tender injuries at the ER patient also was found to have metabolic acidosis hyperglycemia probable startvation ketosis and also has leukocytosis associated with acute renal failure admitted to the ICU for further evaluation and treatment. After medical management and supportive care, the patient's metabolic acidosis resolved. He was transferred to [place] inpatient care unit for management. (1) Suicide attempt: Patient presented with suicide attempt by slashing bilateral wrists. -superficial lacerations on bilateral wrists which were sutured by ER physician. There was no artery or ligamental damage per ER physician -continue suicide precautions -bedside sitter -patient has been evaluated by case investigator and crisis management team, patient has been accepted to [facility] in the inpatient psych Unit. (2) Depression: Code(s): F32.9 - Major depressive disorder, single episode, unspecified Status: Acute Assessment and Plan: Continue duloxetine, Xanax p.r.n. (3) Acute kidney injury: Code(s): N17.9 - Acute kidney failure, unspecified Status: Acute Assessment and Plan: Acute kidney injury with creatinine of 2.3 on admission could be related to hypovolemia, decreased oral intake, hyperglycemia -patient was given adequate IV fluids -creatinine back to 0.8 at the time of discharge -continue to monitor urine output, renal function electrolytes (4) Acute hyperglycemia: Code(s): R73.9 - Hyperglycemia, unspecified Status: Acute Assessment and Plan: Could be stress related, blood sugars have normalized -beta hydroxybutyrate was normal, patient did not have an anion gap, hemoglobin A1c was 5.2 Code status: Full code Patient has been accepted at [facility]
--- NOTE | 2021-08-12 15:00 | PC.NURSE ---
This patient, Howard Funes, was transferred to [place] on 08/12/21 at 1445. Personal belongings sent with patient. Report given to Ginger. Appropriate documentation sent with patient.
--- NOTE | 2021-08-12 16:34 | PM.TDS ---
Transfer Discharge Sum: Prov Provider Date of admission: 08/10/21 20:36 Primary care physician: PHYSICIAN NOT ON STAFF Admitting clinician: Mateo Bauman MD Consults: 08/10/21 20:39 Consult to Physician Routine Comment: Consulting Provider: Odilia Dave Reason for consultation: ICU management Has provider been notified: Yes 08/10/21 21:18 Consult to Dietitian Routine Reason for Consult:: DKA admission DS: Admitting Diagnosis Discharge Date 08/12/21 Admitting Diagnosis Suicidal ideation Suicidal attempt. (1) Suicide attempt: (2) Acute kidney injury: (3) Acute hyperglycemia: (4) Laceration of wrist, left: (5) Laceration of wrist, right: (6) Leukocytosis: (7) Depression: DS: Discharge Diagnosis Discharge Diagnosis (1) Suicide attempt: Code(s): T14.91XA - Suicide attempt, initial encounter Status: Acute Assessment and Plan: Patient presented with suicide attempt by slashing bilateral wrists. -superficial lacerations on bilateral wrists which were sutured by ER physician. There was no artery or ligamental damage per ER physician -continue suicide precautions -bedside sitter -patient has been evaluated by home health care case manager and crisis management team, patient has been accepted to [facility] in the inpatient psych Unit, awaiting bed (2) Depression: Code(s): F32.9 - Major depressive disorder, single episode, unspecified Status: Acute Assessment and Plan: Continue duloxetine, Xanax p.r.n. (3) Acute kidney injury: Code(s): N17.9 - Acute kidney failure, unspecified Status: Acute Assessment and Plan: Acute kidney injury with creatinine of 2.3 on admission could be related to hypovolemia, decreased oral intake, hyperglycemia -patient was given adequate IV fluids -creatinine back to 1.0 -continue to monitor urine output, renal function electrolytes (4) Acute hyperglycemia: Code(s): R73.9 - Hyperglycemia, unspecified Status: Acute Assessment and Plan: Could be stress related, blood sugars have normalized -beta hydroxybutyrate was normal, patient did not have an anion gap, hemoglobin A1c was 5.2 Transfer Discharge Sum: Med Medications Active and Home Medications: Home Medications quetiapine 400 mg PO HS 09/24/20 [History Confirmed 08/11/21] tizanidine 4 mg PO BID 08/10/21 [History Confirmed 08/10/21] buspirone [BuSpar] 30 mg PO BID 08/19/21 [History] divalproex 500 mg PO DAILY 08/19/21 [History] fluoxetine 60 mg PO QID 08/19/21 [History] oxycodone [OxyContin] mg PO 08/19/21 [History] oxycodone myristate [Xtampza ER] 9 mg PO BID 08/19/21 [History] Transfer Discharge Sum: Hosp Hospital Course Hospital course: Hospital Course Reason for hospitalization: Suicidal ideation Suicide attempt Hospital Course: Please refer to admission H&P. Briefly, this is a 40 year-old male with past medical history of anxiety depression bipolar who presented to the hospital with suicidal attempt patient was complaining of depression for the past 2 days patient attempt suicide by slashing his rest according to the ER no evidence of deep arterial injury or tender injuries at the ER patient also was found to have metabolic acidosis hyperglycemia probable startvation ketosis and also has leukocytosis associated with acute renal failure admitted to the ICU for further evaluation and treatment. After medical management and supportive care, the patient's metabolic acidosis resolved. He was transferred to [place] inpatient care unit for management. (1) Suicide attempt: Patient presented with suicide attempt by slashing bilateral wrists. -superficial lacerations on bilateral wrists which were sutured by ER physician. There was no artery or ligamental damage per ER physician -continue suicide precautions -bedside sitter -patient has been evaluated by home health care case manager and crisis management team, patient has been accepted to [facility]
== END 2021-08-12 14:40 | DRG 914 ==
LOC: ANHED 20:31 → ANHICU 08-11 09:58
PROVIDERS: Internal Medicine; Admitting Provider Internal Medicine; Emergency Provider Emergency Medicine; Visit Provider Internal Medicine
DX: T14.91XA Suicide attempt, initial encounter (principal); N17.9 Acute kidney failure, unspecified; F11.20 Opioid dependence, uncomplicated; S61.512A Laceration without foreign body of left wrist, initial encounter; S61.511A Laceration without foreign body of right wrist, initial encounter; X83.8XXA Intentional self-harm by other specified means, initial encounter; Z20.822 Contact with and (suspected) exposure to COVID-19; F41.9 Anxiety disorder, unspecified; F31.9 Bipolar disorder, unspecified; R73.9 Hyperglycemia, unspecified; D72.829 Elevated white blood cell count, unspecified; Z23 Encounter for immunization; X78.9XXA Intentional self-harm by unspecified sharp object, initial encounter
CPT/HCPCS: 12002; 36415; 71045; 74176; 80048; 80053; 80307; 81001; 82010; 82550; 82948; 83036; 83605; 83735; 84100; 84443; 85025; 87040; 90715; 96360; 99291; A9270; C9803; J0696; J1815; J2405; J2550; J3480; J7030; J7040; J7120; U0003; U0005

== ENCOUNTER 2021-08-19 13:25 | Emergency (ER) | payer MEDICARE, MEDICAID, SELFPAY ==
[2021-08-19 13:27] VITALS: BP 137/71; PULSE 98; RESP 18; TEMP 36.8; O2SAT 98
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
--- NOTE | 2021-08-19 16:06 | PC.NURSE ---
Patient walked up to nurses station and informed writer technical publications that he was leaving and he was tired of waiting. Vanessa, Charge nurse aware.
== END 2021-08-19 16:10 | disposition home or self-care (01) ==
LOC: ANHED 16:10
PROVIDERS: Emergency Provider Emergency Medicine
DX: S51.802D Unspecified open wound of left forearm, subsequent encounter (principal); S51.801D Unspecified open wound of right forearm, subsequent encounter; F41.9 Anxiety disorder, unspecified; F32.A Depression, unspecified; K21.9 Gastro-esophageal reflux disease without esophagitis; X78.9XXD Intentional self-harm by unspecified sharp object, subsequent encounter
CPT/HCPCS: 99281

== ENCOUNTER 2021-10-12 16:42 | Emergency (ER) | payer MEDICARE, MEDICAID, SELFPAY ==
[2021-10-12 16:49] VITALS: BP 137/84; PULSE 85; RESP 16; TEMP 37.2; O2SAT 100
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
== END 2021-10-12 17:02 | disposition home or self-care (01) ==
PROVIDERS: Emergency Provider Nurse Practitioner Family
DX: S90.512A Abrasion, left ankle, initial encounter (principal); X58.XXXA Exposure to other specified factors, initial encounter; K21.9 Gastro-esophageal reflux disease without esophagitis; Z87.891 Personal history of nicotine dependence; F15.90 Other stimulant use, unspecified, uncomplicated
CPT/HCPCS: 99213; G0463

== ENCOUNTER 2021-12-09 18:34 | Emergency (ER) | payer MEDICARE, MEDICAID, SELFPAY ==
--- NOTE | ~2021-12-09 | XR_ITS ---
EXAMINATION: XR abdomen obstructive series DATE: 12/09/2021 20:12 INDICATION: Vomiting TECHNIQUE: Upright and supine views of the abdomen were obtained. COMPARISON: 02/08/2017 FINDINGS: The bowel gas pattern is normal. No dilated loops of bowel are seen. There is no free intra peritoneal gas. A phlebolith is noted in the left pelvis. IMPRESSION: 1. Nonobstructive bowel gas pattern. Reviewed, dictated and finalized at location F.
[2021-12-09 18:37] VITALS: BP 179/90; PULSE 70; RESP 20; TEMP 36.7; O2SAT 97
[2021-12-09] MEDS: FAMOTIDINE 20 MG/2 ML VIAL IV PUSH (19:02)
[2021-12-09] MEDS: SODIUM CHLORIDE 0.9% IV 1,000 ML 999 ML IV CONT ×2 (19:02→20:29)
[2021-12-09] MEDS: ONDANSETRON INJ 4 MG/2 ML VIAL IV PUSH (19:02)
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
[2021-12-09 19:11] LABS: Basophils Absolute Auto 0.1 K/mm3 (0.0-0.1); Basophils Percent Auto 0.6 % (0.2-1.2); Eosinophils Percent Auto 0.1 % (0-4.4); Hematocrit 37.6 % (42.0-52.0); Immature Granulocyte Absolute 0.08 K/mm3 (0.00-0.031); Immature Granulocyte Percent A 0.6 % (0-0.5); Lymphocytes Absolute Auto 1.29 K/mm3 (0.9-3.2); Lymphocytes Percent Auto 10.4 % (18.3-44.2); Mean Corpuscular HGB Conc 34.6 g/dl (32-36); Mean Corpuscular Hemoglobin 27.9 pg (26-34); Mean Corpuscular Volume 80.7 fl (80-100); Mean Platelet Volume 8.9 fl (7.4-10.4); Monocytes Absolute Auto 0.6 K/mm3 (0.1-0.6); Monocytes Percent Auto 4.7 % (2.6-8.5); Neutrophils Absolute Auto 10.4 K/mm3 (1.3-6.7); Neutrophils Percent Auto 83.6 % (45.5-73.1); Platelet Count Result 402 k/mm3 (150-375); Red Blood Count 4.66 M/mm3 (4.6-6.20); Red Cell Distribution Width 14.3 % (11.5-14.5); White Blood Count 12.5 K/mm3 (4.5-10.0)
[2021-12-09 19:23] LABS: Albumin Level 5.4 g/dL (3.5-5.1); Alkaline Phosphatase 82 U/L (38-126); Anion Gap 14 mmol/L (8-16); Aspartate Amino Transferase 35 U/L (17-59); Bilirubin,Total 0.3 mg/dL (0.2-1.3); Carbon Dioxide 24 mmol/L (22-30); Chloride 99 mmol/L (98-107); Estimated CRCL calculation 143 ml/min; Estimated Glomerular Filt Rate > 60; Glucose 125 mg/dL (65-110); Lipase 49 U/L (23-300); Potassium 3.6 mmol/L (3.4-5.0); Sodium 137 mmol/L (137-145)
[2021-12-09 19:28] LABS: Alanine Aminotransferase 23 U/L (6-50)
[2021-12-09 19:52] LABS: Blood Urea Nitrogen < 2 mg/dL (9-20)
[2021-12-09 20:42] LABS: Appearance Urine Clear (Clear); Bilirubin Urine Negative (Negative); Color Urine Yellow (Yellow); Glucose Urine UA Negative (Negative); Ketones Urine Negative (Negative); Leukocyte Esterase Ur Negative LEU/UL (Negative); Nitrate Urine Negative (Negative); Protein Urine Negative (Negative); Specific Grav Ur 1.015 (1.001-1.035); Urobilinogen Urine 0.2 mg/dL (<2.0); pH Urine 6.5 (5.0-9.0)
[2021-12-09 20:51] LABS: Mucus Urine Rare /lpf; WBC Urine 0-3 /hpf
[2021-12-09 20:52] LABS: Add Urine Microscopic? YES; Blood Urine Trace-Intact (Negative)
== END 2021-12-09 21:11 | disposition home or self-care (01) ==
PROVIDERS: Emergency Provider Emergency Medicine
DX: K21.9 Gastro-esophageal reflux disease without esophagitis (principal); F41.9 Anxiety disorder, unspecified; F32.A Depression, unspecified; Z87.891 Personal history of nicotine dependence
CPT/HCPCS: 36415; 74019; 80053; 81001; 83690; 85025; 96361; 96374; 96375; 99284; J2405; J7030

== ENCOUNTER 2021-12-18 08:00 | Emergency (ER) | payer MEDICARE, MEDICAID, SELFPAY ==
--- NOTE | ~2021-12-18 | US_ITS ---
US scrotum doppler DATE: 12/18/2021 09:01 INDICATION: Left scrotal pain/lump since yesterday TECHNIQUE: Real-time and color flow imaging and Doppler analysis of the scrotal contents COMPARISON: None FINDINGS: Right testicle measures 5.6 x 2.6 x 3.3 cm; left testicle measures 5.7 x 2.8 x 3.8 cm. Ther e is symmetric homogeneous echotexture of the testicles. No testicular torsion or testicular mass les ion is detected. There is a 4.6 x 6.4 x 5.2 mm left epididymal head cyst. No hydrocele or varicocele is identified on either side. IMPRESSION: No testicular mass lesion or torsion Left epididymal head 6.4 mm cyst Reviewed, dictated and finalized at [facility]. Reviewed, dictated and finalized at [facility].
[2021-12-18 08:06] VITALS: BP 152/83; PULSE 113; RESP 16; TEMP 36.5; O2SAT 100
--- NOTE | 2021-12-18 08:36 | PC.NURSE ---
pt to US via w/c
--- NOTE | 2021-12-18 09:25 | PC.NURSE ---
Pt gave some water and asked to give a urine specimen pt stated he is unable to urinate at this time
[2021-12-18 09:44] LABS: Appearance Urine Clear (Clear); Bilirubin Urine Negative (Negative); Blood Urine Negative (Negative); Color Urine Yellow (Yellow); Glucose Urine UA Negative (Negative); Ketones Urine Negative (Negative); Leukocyte Esterase Ur Negative LEU/UL (Negative); Nitrate Urine Negative (Negative); Protein Urine Negative (Negative); Specific Grav Ur 1.015 (1.001-1.035); Urobilinogen Urine 0.2 mg/dL (<2.0); pH Urine 8.5 (5.0-9.0)
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
[2021-12-18 09:53] LABS: Add Urine Microscopic? NO
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
== END 2021-12-18 10:57 | disposition home or self-care (01) ==
PROVIDERS: Physician Assistant; Emergency Provider Emergency Medicine
DX: N45.1 Epididymitis (principal); F41.9 Anxiety disorder, unspecified; F32.A Depression, unspecified; K21.9 Gastro-esophageal reflux disease without esophagitis; Z87.891 Personal history of nicotine dependence
CPT/HCPCS: 76870; 81003; 87491; 87591; 93976; 99283; 99284